=== PATIENT | male | born 1975 | race African-American/Black ===

== ENCOUNTER 2018-05-02 06:35 | Emergency (ER) | payer MEDICAID, OTHER ==
[~2018-05-02] VITALS: Ht 172.7 cm; Wt 121.0 kg
[2018-05-02] MEDS ORDERED: KETOROLAC 30MG/ML VIAL IV STA (07:08)
[2018-05-02] MEDS ORDERED: ONDANSETRON HCL 4MG/2ML INJ IV STA (07:08)
[2018-05-02] MEDS ORDERED: SODIUM CHLORIDE 0.9% 1,000 ML IV ONE (07:08)
[2018-05-02 08:16] LABS: BASOPHILS % 0.6 % (0.0-2.0); EOSINOPHILS % 0.6 % (0.0-5.0); HEMOGLOBIN. 12.7 g/dL (14.0-18.0); LYMPHOCYTES % 11.8 % (20.0-50.0); MEAN CORPUSCULAR VOLUME 92.1 fL (80.0-94.0); MEAN PLATELET VOLUME 8.4 fl (7.4-10.4); MONOCYTES % 4.5 % (2.0-8.0); NEUTROPHILS % 82.5 % (40.0-76.0); PLATELET 208 x1000/uL (130-400); RED BLOOD CELL COUNT 4.23 mill/uL (4.7-6.1); RED CELL DISTRIBUTION WIDTH 13.3 % (11.6-14.6)
[2018-05-02 08:21] LABS: CHLORIDE 107 mEq/L (98-107)
[2018-05-02 09:31] LABS: CLARITY URINE CLEAR (CLEAR); COLOR URINE YELLOW (YELLOW); SPECIFIC GRAVITY URINE 1.022 (1.005-1.030)
[2018-05-02 09:32] LABS: KETONES URINE NEGATIVE (NEGATIVE); LEUKOCYTE ESTERASE URINE NEGATIVE (NEGATIVE); NITRITE URINE NEGATIVE (NEGATIVE); OCCULT BLOOD URINE 2+ (NEGATIVE); PROTEIN URINE NEGATIVE (NEGATIVE); UROBILINOGEN URINE 0.2 E.U./dL (0.2-1.0)
[2018-05-02 09:50] LABS: METHADONE URINE SCREEN NEGATIVE (NEGATIVE); OPIATES URINE SCREEN NEGATIVE (NEGATIVE)
[2018-05-02 09:51] LABS: *AMPHETAMINES SCREEN URINE NEGATIVE (NEGATIVE); *BENZODIAZEPINES SCREEN URINE NEGATIVE (NEGATIVE); *COCAINE SCREEN URINE NEGATIVE (NEGATIVE); CANNABINOID URINE SCREEN PRESUMTIVE POSITIVE (NEGATIVE); PHENCYCLIDINE URINE SCREEN NEGATIVE (NEGATIVE)
[2018-05-02 09:56] LABS: *BARBITURATES SCREEN URINE NEGATIVE (NEGATIVE)
[2018-05-02 10:51] VITALS: BP 129/70
== END 2018-05-02 11:14 | disposition home or self-care (01) ==
LOC: ER 06:35
DX: N20.0 Calculus of kidney (principal); N28.1 Cyst of kidney, acquired; J45.909 Unspecified asthma, uncomplicated; R31.9 Hematuria, unspecified; R19.7 Diarrhea, unspecified; F17.200 Nicotine dependence, unspecified, uncomplicated; F12.10 Cannabis abuse, uncomplicated; N40.0 Benign prostatic hyperplasia without lower urinary tract symptoms; Z88.0 Allergy status to penicillin
CPT/HCPCS: 36415; 76770; 80053; 80305; 81003; 83690; 85025; 96361; 96374; 96375; 99284; J1885; J2405; J7030

== ENCOUNTER 2023-10-25 05:06 | Emergency (ER) | payer MEDICAID ==
[~2023-10-25] VITALS: Ht 172.7 cm; Wt 134.0 kg
[2023-10-25 05:12] VITALS: O2SAT 99
[2023-10-25] MEDS ORDERED: CLIN-116 PO (05:38)
[2023-10-25] MEDS ORDERED: TOPUD PO (05:38)
[2023-10-25 06:00] VITALS: BP 140/75; PULSE 76; RESP 20; TEMP 98.1
== END 2023-10-25 06:00 | disposition home or self-care (01) ==
LOC: ER 05:06
DX: L98.499 Non-pressure chronic ulcer of skin of other sites with unspecified severity (principal); J45.909 Unspecified asthma, uncomplicated; F12.90 Cannabis use, unspecified, uncomplicated; M54.30 Sciatica, unspecified side; Z87.442 Personal history of urinary calculi; Z88.0 Allergy status to penicillin
CPT/HCPCS: 99283; 99284